=== PATIENT | male | born 1985 | race Caucasian/White ===

== ENCOUNTER 2019-06-30 21:03 | Emergency (ER) | payer OTHER ==
--- NOTE | 2019-06-30 21:06 | PDOC ---
Rapid Medical Evaluation Time Seen by Provider: 06/30/19 21:05 Medical Evaluation: Allergies Allergy/AdvReac Type Severity Reaction Status Date / Time No Known Allergies Allergy Verified 12/07/14 22:23 06/30/19 21:05 CC: anxiety after using mushrooms PE: no focal findings Orders: nothing Patient will proceed to ED for further evaluation. Discharge Disposition - Diagnosis Drug use - Referrals - Patient Instructions - Post Discharge Activity
[2019-06-30 21:08] VITALS: BP 140/84; PULSE 92; TEMP 97.9; BMI 27.6
--- NOTE | 2019-06-30 21:23 | PDOC ---
Documentation entered by Mane Campos SCRIBE, acting as scribe for Tequila Harris DO. Tequila Harris DO: This documentation has been prepared by the Andres casiano Daniel, SCRIBE, under my direction and personally reviewed by me in its entirety. I confirm that the documentation accurately reflects all work, treatment, procedures, and medical decision making performed by me. Attending Attestation - Resident Resident Name: Nakul León - HPI HPI: 06/30/19 21:22 pt walked out prior to my evaluation - Physicial Exam PE: 06/30/19 21:22 pt walked out prior to my evaluation. pt left with his family per nursing - Medical Decision Making 06/30/19 21:23 pt left prior to my evaluation. i did not see, talk to, or examine this patient.
== END 2019-06-30 21:25 | disposition left against medical advice (07) ==
LOC: JER 21:03
DX: F19.90 Other psychoactive substance use, unspecified, uncomplicated (principal)
CPT/HCPCS: 99281-25

== ENCOUNTER 2021-12-16 16:17 | Inpatient (IN) | payer OTHER ==
[2021-12-16 20:26] VITALS: BMI 31.2
[2021-12-16] MEDS ORDERED: IBUPROFEN 400 MG TABLET (FP) PO PRN (21:10)
[2021-12-16] MEDS ORDERED: DICYCLOMINE HCL 10 MG CAPSULE PO PRN (21:10)
[2021-12-16] MEDS ORDERED: LOPERAMIDE HCL 2 MG CAPSULE PO PRN (21:10)
[2021-12-16] MEDS ORDERED: MAGNESIUM CITRATE 300 ML BOTTLE PO PRN (21:10)
[2021-12-16] MEDS ORDERED: BISMUTH SUBSALICYLATE 524 MG/30 ML PO PRN (21:10)
[2021-12-16] MEDS ORDERED: BENZOCAINE/MENTHOL (CHLORASEPTIC ) LOZENGE MM PRN (21:10)
[2021-12-16] MEDS ORDERED: MAGNESIUM HYDROX 2400MG/30ML ORAL SUSPENSION 30 ML CUP PO PRN (21:10)
[2021-12-16] MEDS ORDERED: MAG HYDROX/AL HYDROX/SIMETH 30 ML UNIT-DOSE CUP PO PRN (21:10)
[2021-12-16] MEDS ORDERED: ACETAMINOPHEN 325 MG TABLET (FP) PO PRN ×2 (21:10)
[2021-12-16] MEDS ORDERED: IBUPROFEN 600 MG TABLET (FP) PO PRN (21:10)
[2021-12-16] MEDS ORDERED: METHOCARBAMOL 500 MG TABLET PO PRN (21:10)
[2021-12-16] MEDS ORDERED: ONDANSETRON *ODT* 4 MG TABLET SL PRN (21:10)
[2021-12-16] MEDS ORDERED: MELATONIN 5 MG TABLETS PO SCH (22:00)
[2021-12-16] MEDS ORDERED: THIAMINE HCL 100 MG TABLET (FP) PO SCH (22:00)
[2021-12-17 08:58] VITALS: BP 123/79; PULSE 78; TEMP 98.3
[2021-12-17] MEDS ORDERED: diazePAM 5 MG TABLET PO PRN (09:37)
[2021-12-17] MEDS ORDERED: PRENATAL VITAMINS W/ FOLIC ACID TABLET (FP) PO SCH (10:00)
[2021-12-17] MEDS ORDERED: diazePAM 5 MG TABLET PO SCH (11:00)
[2021-12-17 11:37] LABS: HEMATOCRIT 44.1 % (35.4-49); HEMOGLOBIN 14.9 GM/dL (11.7-16.9); MCH 28.6 pg (25.7-33.7); MCHC 33.9 g/dl (32.0-35.9); MEAN CELL VOLUME 84.2 fl (80-96); PLATELET COUNT 300 10^3/uL (134-434); RBC 5.23 M/mm3 (4.00-5.60); RDW 14.1 % (11.9-15.9); WHITE BLOOD COUNT 6.5 K/mm3 (4.0-10.0)
[2021-12-17 12:52] LABS: ALBUMIN 4.3 g/dl (3.4-5.0); BLOOD UREA NITROGEN 11.9 mg/dL (7-18); CALCIUM 9.9 mg/dL (8.5-10.1)
[2021-12-17 12:55] LABS: CREATININE 0.8 mg/dL (0.55-1.3)
[2021-12-17 12:56] LABS: BILIRUBIN,TOTAL 1.6 mg/dL (0.2-1); TOT PROT 7.7 g/dl (6.4-8.2)
[2021-12-19] MEDS ORDERED: diazePAM 5 MG TABLET PO SCH (06:00)
[2021-12-20] MEDS ORDERED: diazePAM 5 MG TABLET PO SCH (06:00)
[2021-12-21] MEDS ORDERED: diazePAM 5 MG TABLET PO ONE (06:00)
== END 2021-12-17 11:29 | disposition left against medical advice (07) | DRG 770 ==
LOC: YASAS 16:17 → Y3N 22:25
PROVIDERS: ADMIT Allergy & Immunology; ATTEND Surgery
PROC: HZ2ZZZZ Detoxification Services for Substance Abuse Treatment (ICD-10-PCS; principal; 2021-12-16)
DX: F13.230 Sedative, hypnotic or anxiolytic dependence with withdrawal, uncomplicated (principal); F12.20 Cannabis dependence, uncomplicated; F41.9 Anxiety disorder, unspecified; F32.A Depression, unspecified; R76.11 Nonspecific reaction to tuberculin skin test without active tuberculosis; Z87.891 Personal history of nicotine dependence
CPT/HCPCS: 36415; 80053; 85027; 86780; 93005; 93010; C9803-CS; U0003; U0005

== ENCOUNTER 2021-12-20 23:34 | Emergency (ER) | payer OTHER ==
[2021-12-20 23:42] VITALS: BP 128/77; PULSE 84; TEMP 98.5; BMI 30.8
== END 2021-12-21 01:51 | disposition home or self-care (01) ==
LOC: JER 23:34
DX: F41.0 Panic disorder [episodic paroxysmal anxiety] (principal)
CPT/HCPCS: 93005; 93010; 99283-25

== ENCOUNTER 2022-03-02 08:57 | Emergency (ER) | payer OTHER ==
[2022-03-02 09:06] VITALS: BP 132/85; PULSE 91; RESP 18; TEMP 98.3; BMI 29.4
[2022-03-02 09:35] LABS: PH,URINE 5.5 (5.0-8.0); URINE APPEARANCE CLEAR; URINE BILIRUBIN NEGATIVE (NEGATIVE); URINE COLOR YELLOW; URINE GLUCOSE (UA) NEGATIVE (NEGATIVE); URINE KETONE NEGATIVE (NEGATIVE); URINE LEUK ESTERASE NEGATIVE (NEGATIVE); URINE NITRITE NEGATIVE (NEGATIVE); URINE PROTEIN NEGATIVE (NEGATIVE); URINE UROBILINOGEN 0.2 mg/dL (0.2-1.0)
[2022-03-02] MEDS ORDERED: METHOCARBAMOL 500 MG TABLET PO ONE (10:00)
[2022-03-02] MEDS ORDERED: KETOROLAC TROMETHAMINE 30 MG/1 ML VIAL IM ONE (10:01)
[2022-03-02] MEDS ORDERED: LIDOCAINE 5% TOPICAL PATCH TP ONE (10:01)
[2022-03-02] MEDS ORDERED: METHOCARBAMOL 500 MG TABLET ONE (10:13)
[2022-03-02] MEDS ORDERED: KETOROLAC TROMETHAMINE 30 MG/1 ML VIAL ONE (10:13)
[2022-03-02] MEDS ORDERED: LIDOCAINE 5% TOPICAL PATCH ONE (10:13)
== END 2022-03-02 12:34 | disposition home or self-care (01) ==
LOC: JER 08:57
PROC: 3E0233Z Introduction of Anti-inflammatory into Muscle, Percutaneous Approach (ICD-10-PCS; principal; 2022-03-02)
DX: S39.012A Strain of muscle, fascia and tendon of lower back, initial encounter (principal); X50.0XXA Overexertion from strenuous movement or load, initial encounter
CPT/HCPCS: 76870-TC; 81003; 87086; 99284-25

== ENCOUNTER 2022-09-08 07:36 | Emergency (ER) | payer OTHER ==
[2022-09-08 07:54] VITALS: BP 118/75; PULSE 69; RESP 20; TEMP 97.6; BMI 31.2
== END 2022-09-08 10:09 | disposition home or self-care (01) ==
LOC: JER 07:36
DX: F41.0 Panic disorder [episodic paroxysmal anxiety] (principal); F41.9 Anxiety disorder, unspecified
CPT/HCPCS: 93005; 93010; 99283-25

== ENCOUNTER 2022-11-01 08:45 | Emergency (ER) | payer OTHER ==
[2022-11-01 08:53] VITALS: BP 110/72; PULSE 95; RESP 18; TEMP 98.7; BMI 31.2
[2022-11-01] MEDS ORDERED: clonazePAM 0.5 MG TABLET PO ONE (09:24)
[2022-11-01] MEDS ORDERED: clonazePAM 0.5 MG TABLET ONE (09:27)
== END 2022-11-01 10:06 | disposition home or self-care (01) ==
LOC: JER 08:45
DX: F41.9 Anxiety disorder, unspecified (principal); R42 Dizziness and giddiness; R06.02 Shortness of breath
CPT/HCPCS: 82962; 93005; 93010; 99283-25

== ENCOUNTER 2024-09-20 17:42 | Emergency (ER) | payer BC, OTHER ==
[2024-09-20 17:47] VITALS: BP 128/82; PULSE 73; RESP 18; TEMP 98.3; BMI 34.4
[2024-09-20 19:41] LABS: ABSOLUTE IMMATURE GRANULOCYTES 0.01 x10^3/uL (0.0-0.031); BASOPHILS # 0.03 x10^3/uL (0.01-0.08); EOSINOPHIL % 2.6 % (0.8-7.0); EOSINOPHILS # 0.18 x10^3/uL (0.04-0.54); HEMATOCRIT 48.5 % (40.1-51.0); HEMOGLOBIN 15.6 g/dL (13.7-17.5); MCHC 32.2 g/dl (32.3-36.5); MEAN PLT VOLUME 9.7 fl (9.4-12.4); MONOCYTE # 0.65 x10^3/uL (0.30-0.82); MONOCYTE % 9.2 % (5.3-12.2); PLATELET COUNT 292 x10^3/uL (163-337); RDW 12.7 % (12.0-15.6)
[2024-09-20 19:59] LABS: POTASSIUM 4.2 mmol/L (3.5-5.1)
[2024-09-20 20:01] LABS: BLOOD UREA NITROGEN 11.8 mg/dL (7-18)
[2024-09-20 20:04] LABS: CREATININE 0.9 mg/dL (0.55-1.3)
[2024-09-20 23:41] LABS: HIV INTERPRETATION NEGATIVE (NEGATIVE)
[2024-09-20 23:42] LABS: HCV DIAGNOSTIC IN-HOUSE W/RFLX NON-REACTIVE (NONREACTIVE)
== END 2024-09-20 20:30 | disposition home or self-care (01) ==
LOC: JER 17:42
DX: R07.9 Chest pain, unspecified (principal); G47.30 Sleep apnea, unspecified; R42 Dizziness and giddiness; R61 Generalized hyperhidrosis; R11.0 Nausea; F41.9 Anxiety disorder, unspecified
CPT/HCPCS: 36415; 71046-TC-FY; 80048; 84484; 85025; 86803; 87389; 93005; 93010; 99285-25